=== PATIENT | male | born 1970 | race Caucasian/White ===

== ENCOUNTER 2017-07-12 17:55 | Emergency (ER) | payer OTHER ==
[2017-07-12 20:44] LABS: SQUAMOUS EPITHIAL < 1 /hpf (0-5); URINE BILIRUBIN NEGATIVE (NEGATIVE); URINE BLOOD NEGATIVE (NEGATIVE); URINE CLARITY Clear (Clear); URINE COLOR Straw (YELLOW); URINE GLUCOSE (UA) NORMAL (Normal); URINE LEUKOCYTE ESTERASE NEG Leu/uL (Negative); URINE NITRATE NEGATIVE (NEGATIVE); URINE PROTEIN NEGATIVE (NEGATIVE); URINE UROBILINOGEN NORMAL mg/dL (0.2-1.0)
[2017-07-12 22:22] VITALS: BP 126/81; PULSE 86; RESP 18; TEMP 98.7; O2SAT 99
--- NOTE | 2017-07-12 22:43 | US ---
EXAM: US Abdomen Limited, Right Upper Quadrant CLINICAL HISTORY: 47 years old, male; Pain; Abdominal pain; Generalized; Additional info: Ruq vs right flank pain TECHNIQUE: Real-time ultrasound of the right upper quadrant with image documentation. COMPARISON: No relevant prior studies available. FINDINGS: Liver: Possible mild fatty infiltration. No mass. No intrahepatic ductal dilatation. Gallbladder: No gallstones. No wall thickening. No pericholecystic fluid. No sonographic Márquez's sign. Common bile duct: No dilatation. No stones. Pancreas: Unremarkable as visualized. Right kidney: Normal echogenicity. 1.1 cm calculus. No hydronephrosis. IMPRESSION: 1. Nonobstructing renal calculus. 2. Incidental/non-acute findings are described above.
--- NOTE | 2017-07-12 22:56 | C.PDOC ---
History Of Present Illness 47 year old male with a Hx of sarcoidosis presents to the ER with a complaint of cough and cold symptoms for the past 2 days, associated with right lower rib/ flank/RLQ pain that worsen with cough. Denies nausea, vomiting, or diarrhea. Time Seen by Provider: 07/12/17 19:55 Chief Complaint (Nursing): Abdominal Pain History Per: Patient History/Exam Limitations: no limitations Onset/Duration Of Symptoms: Days Current Symptoms Are (Timing): Still Present Location Of Pain/Discomfort: Other (Right flank/rib/RLQ) Radiation Of Pain To:: None Quality Of Discomfort: Unable To Describe Associated Symptoms: Other (Cough, nasal congestion, runny nose). denies: Nausea, Vomiting, Diarrhea Exacerbating Factors: Cough Alleviating Factors: None Recent travel outside of the [place]: No Past Medical History Reviewed: Historical Data, Nursing Documentation, Vital Signs Vital Signs: Last Vital Signs Temp 98.7 F 07/12/17 22:21 Pulse 86 07/12/17 22:21 Resp 18 07/12/17 22:21 BP 126/81 07/12/17 22:21 Pulse Ox 99 07/13/17 01:09 - Medical History PMH: Asthma Family History: States: Unknown Family Hx - Social History Hx Alcohol Use: No Hx Substance Use: No - Immunization History Hx Tetanus Toxoid Vaccination: No Hx Influenza Vaccination: Yes Hx Pneumococcal Vaccination: No Review Of Systems Constitutional: Negative for: Fever, Chills Gastrointestinal: Positive for: Abdominal Pain (RLQ). Negative for: Nausea, Vomiting, Diarrhea Musculoskeletal: Positive for: Back Pain (Right flank), Other (right rib pain) Physical Exam - Physical Exam Appears: Non-toxic Skin: Normal Color, Warm, Dry Head: Atraumatic, Normacephalic Eye(s): bilateral: Normal Inspection Ear(s): Bilateral: Normal Nose: Normal Oral Mucosa: Moist Throat: Normal, No Erythema, No Exudate Neck: Normal, Supple Chest: Symmetrical, No Tenderness Cardiovascular: Rhythm Regular Respiratory: Decreased Breath Sounds (Slightly to right lower lung), No Rales, No Rhonchi, No Wheezing Gastrointestinal/Abdominal: Soft, No Tenderness Neurological/Psych: Oriented x3, Normal Speech ED Course And Treatment O2 Sat by Pulse Oximetry: 99 (room air) Pulse Ox Interpretation: Normal - Other Rad CXR X-Ray: Viewed By Me, Read By Radiologist Interpretation: Accession No. : [id number]. Patient Name / ID : BRIDGET BALL / [id number]. Exam Date : 07/12/2017 21:03:19 ( Approved ). Study Comment : Sex / Age : M / 47Y. Creator : Joselyn Kemp. Dictator : Joselyn Kemp. Business Office Specialist : [employer] Counselor : Joselyn Roman. Approver2 : Report Date : 07/13/2017 08:39:48. My Comment : . HISTORY: right pleuritic pain. COMPARISON: No prior. TECHNIQUE: Chest PA and lateral. FINDINGS: LUNGS: No consolidation. Bilateral diffuse the prominent interstitial lung markings. Bronchovascular central markings also prominent. Shallow lung volumes. PLEURA: No significant pleural effusion identified. No pneumothorax apparent. CARDIOVASCULAR: Normal heart size. Mild central pulmonary venous congestion possible. OSSEOUS STRUCTURES: Thoracic spondylosis. Bilateral shoulder arthrosis. VISUALIZED UPPER ABDOMEN: Normal. OTHER FINDINGS: Study performed in wheelchair. IMPRESSION: Shallow lung volumes with diffuse the prominent interstitial lung markings and chronicity unknown. Infectious inflammatory etiologies in both nonspecific possible . No consolidative infiltrate. Mild central pulmonary venous congestion also possible - CT Scan/US RUQ US Other Rad Studies (CT/US): Read By Radiologist, Radiology Report Reviewed CT/US Interpretation: EXAM: US Abdomen Limited, Right Upper Quadrant. CLINICAL HISTORY: 47 years old, male; Pain; Abdominal pain; Generalized; Additional info: Ruq vs right flank pain. TECHNIQUE: Real-time ultrasound of the right upper quadrant with image documentation. COMPARISON: No relevant prior studies available. FINDINGS: Liver: Possible mild fatty infiltration. No mass. No intrahepatic ductal dilatation. Gallbladder: No gallstones. No wall thickening. No pericholecystic fluid. No sonographic Márquez's. sign. Common bile duct: No dilatation. No stones. Pancreas: Unremarkable as visualized. Right kidney: Normal echogenicity. 1.1 cm calculus. No hydronephrosis. IMPRESSION: 1. Nonobstructing renal calculus. 2. Incidental/ non-acute findings are described above. Thank you for allowing us to participate in the care of your patient. Dictated and Authenticated by: Roel Rios MD Progress Note: CXR, US, and urinalysis ordered. Avelox administered. On reevaluation, patient reports improvement, will discharge home with instructions to follow up with PMD or return if symptoms worsen. 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 Return to ED if feel worse. Prescriptions: Moxifloxacin [Avelox] 400 mg PO DAILY #10 tab Ibuprofen [Motrin Tab] 600 mg PO Q8 #30 tab predniSONE [predniSONE Tab] 2 tab PO DAILY #10 tab Promethazine HCl/Codeine [Prometh-Codein 6.25-10 mg/5 ml] 5 ml PO .Q4-6H #150 ml Albuterol HFA [Ventolin HFA 90 mcg/actuation (8 g)] 1 puff IH .Q4-6H #1 inhaler Instructions: Pleurisy (ED), Acute Bronchitis (ED) Forms: [facility] (Sami) - Clinical Impression Clinical Impression: Pleuritic chest pain, Bronchitis - PA / BUDGET ANALYST / Resident Statement MD/DO has reviewed & agrees with the documentation as recorded. - Scribe Statement The provider has reviewed the documentation as recorded by the Scribsonia Frank All medical record entries made by the Scribsonia were at my direction and personally dictated by me. I have reviewed the chart and agree that the record accurately reflects my personal performance of the history, physical exam, medical decision making, and the department course for this patient. I have also personally directed, reviewed, and agree with the discharge instructions and disposition.
--- NOTE | 2017-07-13 08:41 | RAD ---
HISTORY: right pleuritic pain COMPARISON: No prior. TECHNIQUE: Chest PA and lateral FINDINGS: LUNGS: No consolidation. Bilateral diffuse the prominent interstitial lung markings. Bronchovascular central markings also prominent. Shallow lung volumes PLEURA: No significant pleural effusion identified. No pneumothorax apparent. CARDIOVASCULAR: Normal heart size. Mild central pulmonary venous congestion possible OSSEOUS STRUCTURES: Thoracic spondylosis. Bilateral shoulder arthrosis VISUALIZED UPPER ABDOMEN: Normal. OTHER FINDINGS: Study performed in wheelchair IMPRESSION: Shallow lung volumes with diffuse the prominent interstitial lung markings and chronicity unknown. Infectious inflammatory etiologies in both nonspecific possible . No consolidative infiltrate Mild central pulmonary venous congestion also possible
== END 2017-07-12 23:09 | disposition home or self-care (01) ==
LOC: C.ER 17:55 → SUPCPDRO 17:55 → C.ER 23:09
DX: J40 Bronchitis, not specified as acute or chronic (principal); R07.81 Pleurodynia